=== PATIENT | male | born 1965 | race Caucasian/White ===

== ENCOUNTER 2025-02-14 14:32 | Inpatient (IN) | payer MEDICARE, OTHER ==
[~2025-02-14] VITALS: Ht 182.9 cm; Wt 119.9 kg
[2025-02-14] MEDS ORDERED: ASPI-869 PO (15:07)
[2025-02-14] MEDS ORDERED: DIVA-78 PO (15:07)
[2025-02-14] MEDS ORDERED: RISP4TAB70 PO (15:07)
[2025-02-14] MEDS ORDERED: SODI1TAB3 PO (15:07)
[2025-02-14] MEDS ORDERED: ATOR20TA PO (15:07)
[2025-02-14] MEDS ORDERED: PANT40TA49 PO (15:07)
[2025-02-14] MEDS ORDERED: OLAN10TA3 PO (15:07)
[2025-02-14] MEDS ORDERED: LACT10SO58 PO (15:07)
[2025-02-14] MEDS ORDERED: BENZ2TAB7 PO (15:07)
[2025-02-14] MEDS ORDERED: CEFT1VIA14 IM (15:07)
[2025-02-14] MEDS ORDERED: DILT90TA10 PO (15:07)
[2025-02-14] MEDS ORDERED: SACC250C9 PO (15:07)
[2025-02-14] MEDS ORDERED: BUSP15TA3 PO (15:07)
[2025-02-14 15:14] LABS: PLATELET COUNT (AUTO) 272 K/uL (152-348); RED BLOOD CELL COUNT(AUTO) 3.85 MIL/uL (4.06-5.63); RED CELL DISTRIBUTION WIDTH 16.5 % (12.1-16.2); WHITE BLOOD COUNT (AUTO) 7.0 K/uL (3.6-10.2)
[2025-02-14 15:25] LABS: CREATININE 0.5 mg/dL (0.6-1.3); SODIUM SERUM 124 mmol/L (136-145); UREA NITROGEN, BLOOD 8 mg/dL (7-18)
[2025-02-14] MEDS ORDERED: PIPERACILLIN/TAZOBACTAM/D5W 50 ML IV ONE (15:25)
[2025-02-14 15:30] LABS: ASPARTATE AMINOTRANSFERASE 8 U/L (15-37); TOTAL PROTEIN, SERUM 8.7 g/dL (6.4-8.2)
[2025-02-14] MEDS: PIPERACILLIN SODIUM/TAZOBACTAM 3.375 G in IV DEXTROSE 5% 50 ML IV ONE (15:35)
[2025-02-14] MEDS: IV NORMAL SALINE 1000 ML BAG IV ONE (15:35)
[2025-02-14 16:00] LABS: *BILIRUBIN,URIN NEGATIVE (NEGATIVE); *CLARITY,URINE CLEAR (CLEAR); *COLOR,URINE YELLOW (YELLOW); *KETONES,URINE NEGATIVE (NEGATIVE); *PROTEIN,URINE NEGATIVE (NEGATIVE); *UROBILINOGEN,URINE 1.0 E.U./dl (NORMAL); LEUKOCYTE ESTERASE ,URINE NEGATIVE (NEGATIVE); NITRITE, URINE NEGATIVE (NEGATIVE); UGLUCOSE NEGATIVE (NEGATIVE)
[2025-02-14 16:01] LABS: *BLOOD, URINE TRACE (NEGATIVE)
[2025-02-14] MEDS ORDERED: VANCOMYCIN IV 200 ML ONE (16:17)
[2025-02-14] MEDS: VANCOMYCIN IV 1,000 MG in IV DEXTROSE 5% 250 ML IV ONE (16:18)
[2025-02-14 16:41] LABS: SQUAMOUS EPITHELIAL CELL,UR NONE SEEN /HPF (NONE SEEN)
[2025-02-14] MEDS ORDERED: ACETAMINOPHEN 325 MG TABLET PO PRN (17:30)
[2025-02-14] MEDS ORDERED: MAGNESIUM HYDROXIDE 30 ML LIQUID UDC PO PRN (17:30)
[2025-02-14] MEDS ORDERED: REMEDY ESSENTIAL ZINC PASTE 113 GM TP PRN (17:30)
[2025-02-14] MEDS ORDERED: ONDANSETRON 4 MG/2 ML VIAL IV PRN (17:30)
[2025-02-14] MEDS ORDERED: DILT90CA PO (18:20)
[2025-02-14 18:41] VITALS: BP 161/78
[2025-02-14 19:20] VITALS: BP 115/70; TEMP 98.3; O2SAT 93
[2025-02-14] MEDS: ATORVASTATIN 20 MG TABLET PO SCH (20:41)
[2025-02-14] MEDS: IV NS 1000 ML 1,000 ML IV PRN (20:43)
[2025-02-14] MEDS ORDERED: CEFTRIAXONE /D5W 50ML IVPB **ER PYXIS IV ONE (23:08)
[2025-02-14] MEDS: diphenhydrAMINE 25 MG CAP PO PRN (23:09)
[2025-02-14] MEDS ORDERED: PERMETHRIN 5% CREAM 60 GM TUBE TP ONE (23:21)
[2025-02-15] MEDS ORDERED: VANCOMYCIN 1000 MG VIAL ONE (00:02)
[2025-02-15] MEDS: NORMAL SALINE IV ONE (00:54)
[2025-02-15] MEDS: VANCOMYCIN HCL IV ONE (00:54)
[2025-02-15] MEDS: PERMETHRIN 5% CREAM 60 GM TUBE TP ONE (01:27)
[2025-02-15 06:44] LABS: PLATELET COUNT (AUTO) 289 K/uL (152-348); RED BLOOD CELL COUNT(AUTO) 3.90 MIL/uL (4.06-5.63); RED CELL DISTRIBUTION WIDTH 16.3 % (12.1-16.2); WHITE BLOOD COUNT (AUTO) 6.9 K/uL (3.6-10.2)
[2025-02-15 07:01] LABS: CREATININE 0.6 mg/dL (0.6-1.3); SODIUM SERUM 127 mmol/L (136-145); UREA NITROGEN, BLOOD 7 mg/dL (7-18)
[2025-02-15 07:08] VITALS: BP 151/85; TEMP 98; O2SAT 95
[2025-02-15] MEDS: PANTOPRAZOLE SODIUM 40 MG TABLET.DR PO SCH (07:18)
[2025-02-15] MEDS: DIVALPROEX 500 MG TABLET.DR PO SCH (07:18)
[2025-02-15] MEDS: SODIUM CHLORIDE 1,000 MG TABLET PO SCH ×2 (08:51→16:30)
[2025-02-15] MEDS: ASPIRIN EC 81 MG TABLET.DR PO SCH (08:52)
[2025-02-15] MEDS: LACTULOSE 20 G/30 ML LIQUID UDC PO SCH (08:53)
[2025-02-15] MEDS: DILTIAZEM HCL CD 180 MG CAP.SR.24H PO SCH (08:58)
[2025-02-15] MEDS: OLANZAPINE 5 MG TABLET PO SCH (08:59)
[2025-02-15] MEDS ORDERED: DILTIAZEM HCL 90 MG TABLET PO SCH (09:00)
[2025-02-15] MEDS: BENZTROPINE MESYLATE 1 MG TABLET PO SCH (09:04)
[2025-02-15] MEDS: VANCOMYCIN IV 2,000 MG in IV DEXTROSE 5% 500 ML IV SCH (10:43)
[2025-02-15 11:44] VITALS: BP 144/65; TEMP 97.8; O2SAT 95
[2025-02-15] MEDS: MEDIHONEY= THERAHONEY 1.5 OZ TUBE TOP SCH (11:51)
[2025-02-15 13:09] LABS: IRON, SERUM 31.0 ug/dL (50-175)
[2025-02-15 13:21] LABS: HIV-1/2 ANTIBODY NON REACTIVE (NONREACTIVE)
[2025-02-15 15:44] VITALS: BP 121/64; TEMP 97.8; O2SAT 97
[2025-02-15] MEDS ORDERED: SODIUM CHLORIDE 1,000 MG TABLET PO SCH (16:26)
[2025-02-15 19:50] VITALS: BP 127/71; TEMP 97.8; O2SAT 94
[2025-02-16 06:48] VITALS: BP 165/88; TEMP 98.1; O2SAT 95
[2025-02-16 06:53] LABS: CREATININE 0.6 mg/dL (0.6-1.3); SODIUM SERUM 125 mmol/L (136-145); UREA NITROGEN, BLOOD 9 mg/dL (7-18)
[2025-02-16 11:34] VITALS: BP 152/84; TEMP 98.4; O2SAT 96
[2025-02-16 15:44] VITALS: BP 140/69; TEMP 98.5; O2SAT 98
[2025-02-16 19:30] VITALS: BP 135/79; TEMP 98.5; O2SAT 91
[2025-02-16] MEDS: MUPIROCIN 2% OINT 22 GM TUBE NS SCH (20:57)
[2025-02-17 06:04] LABS: *SODIUM RNDM,URINE 87 mmol/L (40-220)
[2025-02-17] MEDS: VANCOMYCIN IV 2,000 MG in IV DEXTROSE 5% 500 ML IV SCH (10:23)
[2025-02-17] MEDS ORDERED: BENZTROPINE MESYLATE 1 MG TABLET PO PRN (10:30)
[2025-02-17 11:07] LABS: *IMMUNOGLOBULIN G, SERUM 4107 mg/dL (603-1613); FOLATE (FOLIC ACID), SERUM 4.7 ng/mL (>3.0); IMMUNOGLOBULIN A, SERUM 567 mg/dL (90-386); IMMUNOGLOBULIN M, SERUM 43 mg/dL (20-172)
[2025-02-17 11:38] VITALS: BP 146/85; TEMP 97.9; O2SAT 98
[2025-02-17 14:08] LABS: PLATELET COUNT (AUTO) 261 K/uL (152-348); RED BLOOD CELL COUNT(AUTO) 3.99 MIL/uL (4.06-5.63); RED CELL DISTRIBUTION WIDTH 16.8 % (12.1-16.2); WHITE BLOOD COUNT (AUTO) 6.6 K/uL (3.6-10.2)
[2025-02-17 14:21] LABS: ASPARTATE AMINOTRANSFERASE < 5 U/L (15-37); CREATININE 0.6 mg/dL (0.6-1.3); SODIUM SERUM 133 mmol/L (136-145); TOTAL PROTEIN, SERUM 8.7 g/dL (6.4-8.2); UREA NITROGEN, BLOOD 7 mg/dL (7-18)
[2025-02-17 15:16] VITALS: BP 131/71; TEMP 97.9; O2SAT 97
[2025-02-17 19:20] VITALS: BP 138/68; TEMP 98.8; O2SAT 94
[2025-02-18 06:34] LABS: PLATELET COUNT (AUTO) 248 K/uL (152-348); RED BLOOD CELL COUNT(AUTO) 3.84 MIL/uL (4.06-5.63); RED CELL DISTRIBUTION WIDTH 16.3 % (12.1-16.2); WHITE BLOOD COUNT (AUTO) 7.0 K/uL (3.6-10.2)
[2025-02-18 06:59] LABS: ASPARTATE AMINOTRANSFERASE 9 U/L (15-37); CREATININE 0.6 mg/dL (0.6-1.3); SODIUM SERUM 128 mmol/L (136-145); TOTAL PROTEIN, SERUM 8.6 g/dL (6.4-8.2); UREA NITROGEN, BLOOD 10 mg/dL (7-18)
[2025-02-18 11:22] VITALS: BP 142/87; TEMP 97.6; O2SAT 98
[2025-02-19 01:09] LABS: HEPATITIS B SURFACE AB, QUAL Non Reactive (.); HEPATITIS B SURFACE AG Negative (Negative); HEPATITIS C VIRUS ANTIBODY Non Reactive (Non Reactive)
[2025-02-19 02:11] LABS: FREE KAPPA LT CHAINS SERUM 101.9 mg/L (3.3-19.4); FREE LAMBDA LT CHAIN SERUM 90.1 mg/L (5.7-26.3); KAPPA/LAMBDA RATIO SERUM 1.13 (0.26-1.65)
== END 2025-02-18 16:40 | DRG 603 ==
LOC: ER 14:32 → MEDSURG3 19:38
PROVIDERS: ADMIT Internal Medicine; ATTEND Internal Medicine
PROC: 05HC33Z Insertion of Infusion Device into Left Basilic Vein, Percutaneous Approach (ICD-10-PCS; principal; 2025-02-17)
DX: L03.115 Cellulitis of right lower limb (principal); E87.1 Hypo-osmolality and hyponatremia; G25.9 Extrapyramidal and movement disorder, unspecified; E78.5 Hyperlipidemia, unspecified; J44.9 Chronic obstructive pulmonary disease, unspecified; Z79.82 Long term (current) use of aspirin; Z79.899 Other long term (current) drug therapy; H40.9 Unspecified glaucoma; L03.116 Cellulitis of left lower limb; F25.0 Schizoaffective disorder, bipolar type; G40.909 Epilepsy, unspecified, not intractable, without status epilepticus; K21.9 Gastro-esophageal reflux disease without esophagitis; I87.2 Venous insufficiency (chronic) (peripheral); R60.0 Localized edema; B86 Scabies; L89.156 Pressure-induced deep tissue damage of sacral region; D63.8 Anemia in other chronic diseases classified elsewhere; M15.4 Erosive (osteo)arthritis; F41.9 Anxiety disorder, unspecified; F32.9 Major depressive disorder, single episode, unspecified; E86.1 Hypovolemia; E88.09 Other disorders of plasma-protein metabolism, not elsewhere classified; D72.821 Monocytosis (symptomatic); I10 Essential (primary) hypertension; Z22.322 Carrier or suspected carrier of Methicillin resistant Staphylococcus aureus
CPT/HCPCS: 36415; 71045; 76700; 82746; 82784; 83550; 83605; 83735; 84100; 84155; 84165; 84300; 84443; 84484; 84550; 85025; 85730; 86334; 86706; 86803; 87040; 87086; 87340; 87806; A4663; A6213; G0378; J0696; J2543; J3373; J7040; J7060; Q0163